=== PATIENT | female | born 1935 | race Native Hawaiian/Other Pacific Islander ===

== ENCOUNTER 2019-05-08 12:39 | Emergency (ER) | payer OTHER ==
[~2019-05-08] VITALS: Ht 162.6 cm; Wt 62.5 kg
[2019-05-08] MEDS ORDERED: IOVERSOL 350 MG/ML 100 ML VIAL ONE (12:45)
[2019-05-08 13:39] LABS: BASOPHILS % (AUTO) 0.2 % (0.0-2.0); HEMATOCRIT 49.8 % (36-46); HEMOGLOBIN 16.2 g/dL (12.0-16.0); LYMPHOCYTES # (AUTO) 1.2 K/uL (1.0-4.8); LYMPHOCYTES % (AUTO) 18.8 % (22.0-44.0); MEAN CORPUSCULAR HEMOGLOBIN 30.6 pg (26.0-34.0); MEAN CORPUSCULAR HGB CONC 32.5 G/dL (31.0-37.0); MEAN CORPUSCULAR VOLUME 94 fL (80-100); MONOCYTES # (AUTO) 0.5 K/uL (0.1-1.0); MONOCYTES % (AUTO) 8.2 % (2.0-9.0); NEUTROPHILS # (AUTO) 4.4 K/uL (1.8-7.7); NEUTROPHILS % (AUTO) 70.8 % (40.0-70.0); PLATELET COUNT (AUTO) 60 K/uL (150-450); RED BLOOD CELL COUNT(AUTO) 5.29 MIL/uL (4.00-5.20)
[2019-05-08 13:44] LABS: CALCIUM, TOTAL 9.4 mg/dL (8.8-10.5); CREATININE 0.99 mg/dL (0.60-1.30); POTASSIUM 3.9 mmol/L (3.5-5.1)
[2019-05-08 13:49] LABS: ALBUMIN 3.7 g/dL (3.4-5.0); BILIRUBIN,TOTAL 0.8 mg/dL (0.1-1.0)
[2019-05-08] MEDS ORDERED: IODIXANOL 320 MG/ML 100 ML VIAL ONE (13:58)
[2019-05-08] MEDS ORDERED: ACETAMINOPHEN 325 MG TABLET PO PRN (14:30)
[2019-05-08] MEDS ORDERED: BISACODYL 10 MG RECTAL RECTAL SUPPOSITORY PR PRN (14:30)
[2019-05-08] MEDS ORDERED: PIPERACILLIN SODIUM/TAZOBACTAM 4.5 GM in DEXTROSE 5%-WATER 100 ML IV ONE (15:00)
[2019-05-08] MEDS ORDERED: SOTA80 PO (15:26)
[2019-05-08] MEDS ORDERED: ERGO500054 PO (15:26)
[2019-05-08] MEDS ORDERED: CLOP75TA3 PO (15:26)
[2019-05-08] MEDS ORDERED: ROSU10TA22 PO (15:26)
[2019-05-08] MEDS ORDERED: RIFAB150 PO (15:26)
[2019-05-08] MEDS ORDERED: PYRI25TA4 PO (15:26)
[2019-05-08] MEDS ORDERED: ISON300 PO (15:26)
[2019-05-08] MEDS ORDERED: LOSA50TA64 PO (15:26)
[2019-05-08] MEDS ORDERED: VENL-67 PO (15:26)
[2019-05-08] MEDS ORDERED: VANCOMYCIN HCL 1.5 GM in DEXTROSE 5%-WATER 250 ML IV ONE (16:15)
[2019-05-08 17:44] VITALS: BP 126/99
[2019-05-08] MEDS ORDERED: PIPERACILLIN SODIUM/TAZOBACTAM 2.25 GM in DEXTROSE 5%-WATER 50 ML IV SCH (22:00)
[2019-05-09] MEDS ORDERED: PANTOPRAZOLE SODIUM 40 MG/VIAL IVP SCH (09:00)
== END 2019-05-08 19:33 | disposition short-term general hospital (02) ==
LOC: EMS 12:43
DX: I63.9 Cerebral infarction, unspecified (principal); J90 Pleural effusion, not elsewhere classified; I48.91 Unspecified atrial fibrillation; I25.10 Atherosclerotic heart disease of native coronary artery without angina pectoris; J45.909 Unspecified asthma, uncomplicated; F32.9 Major depressive disorder, single episode, unspecified; E11.9 Type 2 diabetes mellitus without complications; Z95.0 Presence of cardiac pacemaker; Z86.73 Personal history of transient ischemic attack (TIA), and cerebral infarction without residual deficits
CPT/HCPCS: 36415; 70450; 70496; 71045; 71260; 74177; 80053; 83605; 84484; 85025; 85610; 85730; 86850; 86900; 86901; 87040; 93005; 96365; 96367; 99285; J2543; J3370; J7060 ×2; Q9967 ×2; 72193; 74160